=== PATIENT | male | born 1995 | race Caucasian/White ===

== ENCOUNTER 2019-08-24 15:54 | Emergency (ER) | payer OTHER ==
[2019-08-24] MEDS ORDERED: KETOROLAC TROMETHAMINE 60 MG/2 ML SDV IM ONE (16:08)
--- NOTE | 2019-08-24 16:46 | RADIOLOGY REPORT (SQ) ---
EXAM DESCRIPTION: RIBS LEFT W/PA CHEST IMAGES COMPLETED DATE/TIME: 08/24/2019 4:24 pm REASON FOR STUDY: pain COMPARISON: None. TECHNIQUE: Frontal view of the chest and additional views of the left ribs acquired. NUMBER OF VIEWS: Three view. LIMITATIONS: None. FINDINGS: FRONTAL CXR: Small left pleural effusion. No pneumothorax. RIBS: Slightly displaced fractures of the 6th, 7th, 8th and 9th left posterolateral ribs. OTHER: No other significant finding. IMPRESSION: Fractures of the 6th through 9th left posterolateral ribs. Small left effusion. COMMENT: SITE OF TRAUMA/COMPLAINT MARKED/STAMP COMPLETED: NO. TECHNICAL DOCUMENTATION: JOB ID: [id number] 2010 [employer]- All Rights Reserved Reading location - IP/workstation name: [email or web address]
--- NOTE | 2019-08-24 16:56 | ER Document Report ---
ED Medical Screen (RME) - General Chief Complaint: Rib Pain Stated Complaint: FALL/LEFT RIB PAIN Time Seen by Provider: 08/24/19 16:03 Mode of Arrival: Ambulatory Information source: Patient Notes: HPI; 24-year-old male no previous medical problems presents to the emergency room complaining of left lateral and anterior rib pain for the past 4 days. States he was wrestling with somebody much larger than him unknown actual injury. Pain worsening. Worse with movement, hurts to take a deep breath, denies chest pain, denies shortness of breath, taking ibuprofen without relief. Drove self to the emergency room. PE: Alert and oriented x3, moderate distress noted. Lungs: Clear to auscultation without rales, rhonchi, wheezes. Heart: Regular rate rhythm without murmurs, rubs, gallops. Tenderness on palpation to the left lateral and anterior ribs 6 through 10. I have greeted and performed a rapid initial assessment of this patient. A comprehensive ED assessment and evaluation of the patient, analysis of test results and completion of the medical decision making process will be conducted by additional ED providers. I have specifically instructed the patient or family members with the patient to immediately return to any nursing staff should anything change in the patient's condition or with their chief complaint. TRAVEL OUTSIDE OF THE [place] IN LAST 30 DAYS: No - Related Data Allergies/Adverse Reactions: No Known Allergies Allergy (Verified 08/24/19 16:06) Past Medical History - Social History Chew tobacco use (# tins/day): Yes Frequency of alcohol use: Occasional Drug Abuse: None Physical Exam - Vital signs Vitals: Temp Pulse Resp BP Pulse Ox 98.8 F 84 16 140/82 H 96 08/24/19 15:58 08/24/19 15:58 08/24/19 15:58 08/24/19 15:58 08/24/19 15:58 Course - Vital Signs Vital signs: Temp Pulse Resp BP Pulse Ox 98.8 F 84 16 140/82 H 96 08/24/19 16:00 08/24/19 15:58 08/24/19 15:58 08/24/19 15:58 08/24/19 15:58
[2019-08-24 17:49] LABS: ABSOLUTE LYMPHOCYTES (AUTO) 1.3 10^3/uL (0.5-4.7); ABSOLUTE MONOCYTES (AUTO) 0.9 10^3/uL (0.1-1.4); ABSOLUTE NEUT (AUTO) 10.7 10^3/uL (1.7-8.2); BASOPHILS % (AUTO) 0.2 % (0-2); EOSINOPHILS % (AUTO) 0.2 % (0-6); HEMATOCRIT 45.9 % (37.9-51.0); HEMOGLOBIN 15.8 g/dL (13.5-17.0); MEAN CORPUSCULAR HGB CONC 34.5 g/dL (32.0-36.0); MEAN CORPUSCULAR VOLUME 87 fl (80-97); MONOCYTES % (AUTO) 7.1 % (3-13); PLATELET COUNT 308 10^3/uL (150-450); RED BLOOD COUNT 5.28 10^6/uL (4.35-5.55); RED CELL DISTRIBUTION WIDTH 13.9 % (11.5-14.0); SEGMENTED NEUTROPHILS % (AUTO) 82.5 % (42-78); TOTAL CELLS COUNTED % (AUTO) 100 %; WHITE BLOOD COUNT 12.9 10^3/uL (4.0-10.5)
[2019-08-24 18:12] LABS: ALBUMIN 4.8 g/dL (3.5-5.0); ALKALINE PHOSPHATASE 97 U/L (38-126); ANION GAP 10 (5-19); ASPARTATE AMINO TRANSFERASE 36 U/L (17-59); BILIRUBIN,DIRECT 0.1 mg/dL (0.0-0.4); BILIRUBIN,TOTAL 0.9 mg/dL (0.2-1.3); BLOOD UREA NITROGEN 14 mg/dL (7-20); CALCIUM 10.7 mg/dL (8.4-10.2); CARBON DIOXIDE 27 mmol/L (22-30); CHLORIDE 101 mmol/L (98-107); GLUCOSE 101 mg/dL (75-110); POTASSIUM 4.3 mmol/L (3.6-5.0); TOTAL PROTEIN 8.2 g/dL (6.3-8.2)
--- NOTE | 2019-08-24 19:30 | RADIOLOGY REPORT (SQ) ---
EXAM DESCRIPTION: CT CHEST WITH IMAGES COMPLETED DATE/TIME: 08/24/2019 7:13 pm REASON FOR STUDY: 4 rib fx, effusion COMPARISON: None. TECHNIQUE: CT scan of the chest performed using helical scanning technique with dynamic intravenous contrast injection. Images reviewed with lung, soft tissue and bone windows. Reconstructed coronal and sagittal MPR and MIP images reviewed. All images stored on PACS. All CT scanners at this facility use dose modulation, iterative reconstruction, and/or weight based d osing when appropriate to reduce radiation dose to as low as reasonably achievable (ALARA). [facility]: Dose Right [facility]: CareDose [facility]: Dose Right [facility]: Teradose 4D [facility]: Xyleme CONTRAST TYPE AND DOSE: contrast/concentration: Isovue 350.00 mg/ml; Total Contrast Delivered: 80.0 ml; Total Saline Delivered: 55.0 ml RENAL FUNCTION: None required. The patient is less than 50 years old. RADIATION DOSE: CT Rad equipment meets quality standard of care and radiation dose reduction techniq ues were employed. CTDIvol: 10.3 mGy. DLP: 369 mGy-cm. . LIMITATIONS: None. FINDINGS: LUNGS AND PLEURA: There is mild airspace opacification in the left base. No pneumothorax. Small pleural fluid collection. HILAR AND MEDIASTINAL STRUCTURES: No identified masses or abnormal nodes. HEART AND VASCULAR STRUCTURES: No aneurysm or dissection. No central pulmonary emboli. No pericardi al effusion. HARDWARE: None in the chest. UPPER ABDOMEN: No visceral injury. THYROID AND OTHER SOFT TISSUES: No masses. No adenopathy. BONES: Rib fractures on the left. OTHER: No other significant finding. IMPRESSION: Left-sided rib fractures. Cannot exclude limited pulmonary contusion. Small pleural fl uid collection does not appear to represent fresh blood. No pneumothorax. TECHNICAL DOCUMENTATION: JOB ID: [id number] Quality ID # [id number]: Final reports with documentation of one or more dose reduction techniques (e.g., Au tomated exposure control, adjustment of the mA and/or kV according to patient size, use of iterative reconstruction technique) 2010 [employer]- All Rights Reserved Reading location - IP/workstation name: [email or web address]
[2019-08-24] MEDS ORDERED: HYDROMORPHONE HCL INJ/PF 2 MG/ML AMPULE IV ONE (20:05)
[2019-08-24] MEDS ORDERED: ONDANSETRON HCL INJ/PF 4 MG/2 ML SDV IV ONE (20:05)
[2019-08-24] MEDS ORDERED: HYDROCODONE/ACETAMINOPHEN 5-325 MG (6 TAB/ER DISP) PO PRN (21:55)
[2019-08-24] MEDS ORDERED: DOXYCYCLINE HYCLATE 100 MG TABLET PO ONE (21:56)
--- NOTE | 2019-08-24 22:00 | ER Document Report ---
ED General - General Chief Complaint: Rib Pain Stated Complaint: FALL/LEFT RIB PAIN Time Seen by Provider: 08/24/19 16:03 [facility] Care Provider: [facility] [[facility]] - Follow up as needed Mode of Arrival: Ambulatory Information source: Patient Notes: 24-year-old male arrives shortly after wrestling with a very heavy and muscular friend. He weighs at least 260 pounds more than the patient. Patient landed on the floor with his left elbow into his left ribs and fractured 4 of his lower ribs. Patient is in considerable pain upon arrival. He was seen by ASHELY Cabrera upon arrival. Patient denies any medical problems except for tinea versicolor of his chest and back which he has had for 1 year. Patient denies any hemoptysis. CT scan was also done after x-ray of ribs which revealed a question of pulmonary contusion. Patient is very conversant and appears to be in no distress after IV pain medication. TRAVEL OUTSIDE OF THE [place] IN LAST 30 DAYS: No - HPI Onset: Just prior to arrival Onset/Duration: Sudden Quality of pain: Achy Severity: Severe Pain Level: 4 Associated symptoms: None Exacerbated by: Denies Relieved by: Denies Similar symptoms previously: No Recently seen / treated by doctor: No - Related Data Allergies/Adverse Reactions: No Known Allergies Allergy (Verified 08/24/19 16:06) Past Medical History - General Information source: Patient - Social History Smoking Status: Never Smoker Cigarette use (# per day): No Chew tobacco use (# tins/day): Yes Smoking Education Provided: No Frequency of alcohol use: Occasional Drug Abuse: None Lives with: Family Family History: Reviewed & Not Pertinent Patient has homicidal ideation: No Review of Systems - Review of Systems Constitutional: No symptoms reported EENT: No symptoms reported Cardiovascular: See HPI, Chest pain Respiratory: No symptoms reported Gastrointestinal: No symptoms reported Genitourinary: No symptoms reported Male Genitourinary: No symptoms reported Musculoskeletal: No symptoms reported Skin: No symptoms reported Hematologic/Lymphatic: No symptoms reported Neurological/Psychological: No symptoms reported Physical Exam - Vital signs Vitals: Temp Pulse Resp BP Pulse Ox 98.8 F 84 16 140/82 H 96 08/24/19 15:58 08/24/19 15:58 08/24/19 15:58 08/24/19 15:58 08/24/19 15:58 - General General appearance: Alert - HEENT Head: Normocephalic, Atraumatic Eyes: Normal Pupils: PERRL Sinus: Normal Nasal: Normal Mouth/Lips: Normal Pharynx: Normal Neck: Normal - Respiratory Respiratory status: No respiratory distress Chest status: Tender Breath sounds: Decreased air movement Chest palpation: Tender - left lateral ribs - Cardiovascular Rhythm: Regular Heart sounds: Normal auscultation Murmur: No - Abdominal Inspection: Normal Distension: No distension Bowel sounds: Normal Tenderness: Nontender Organomegaly: No organomegaly - Rectal Hemorrhoids: Other - deferred - Genitourinary Tenderness: Other - deferred - Back Back: Normal - Extremities General upper extremity: Normal inspection General lower extremity: Normal inspection - Neurological Neuro grossly intact: Yes Cognition: Normal Orientation: AAOx4 [place] Coma Scale Eye Opening: Spontaneous [place] Coma Scale Verbal: Oriented Gurwinder Coma Scale Motor: Obeys Commands [place] Coma Scale Total: 15 Speech: Normal Motor strength normal: LUE, RUE, LLE, RLE Sensory: Normal - Psychological Associated symptoms: Normal affect - Skin Skin Temperature: Warm Skin Moisture: Dry Skin Color: Other - Tinea versicolor of multiple areas of chest and back reddish-brown in color. Negative for any pityriasis rosea Course - Vital Signs Vital signs: Temp Pulse Resp BP Pulse Ox 98.2 F 76 16 126/79 H 96 08/24/19 20:13 08/24/19 20:13 08/24/19 20:13 08/24/19 20:13 08/24/19 20:13 - Laboratory Result Diagrams: 08/24/19 17:37 08/24/19 17:37 Laboratory results interpreted by me: 08/24/19 08/24/19 17:37 17:37 WBC 12.9 H Lymph % (Auto) 10.0 L Absolute Neuts (auto) 10.7 H Seg Neutrophils % 82.5 H Calcium 10.7 H - Diagnostic Test Radiology reviewed: Reports reviewed Critical Care Note - Critical Care Note Total time excluding time spent on procedures (mins): 90 Comments: I advised patient of the x-ray and CT findings and the fact he will receive [place] by prescription and doxycycline antibiotic. I also advised him to use Selsun Blue and Lotrimin cream on his tinea versicolor of his chest and back Discharge - Discharge Clinical Impression: Ribs, multiple fractures Qualifiers: Encounter type: initial encounter Fracture type: closed Laterality: left Qualified Code(s): S22.42XA - Multiple fractures of ribs, left side, initial encounter for closed fracture Condition: Good Disposition: HOME, SELF-CARE Additional Instructions: Follow-up with personal doctor return to ER as needed take medicines as directed; avoid using left sided rib for at least 2 months. May apply Lidoderm patch to left ribs as necessary. Try not to drive while taking pain medicine. Also try to stay out of sunlight while taking doxycycline. Also use Selsun Blue shampoo on your tenia versicolor skin lesions followed after drying with Lotr imin cream.. The lesions will appear quite irritated for at least 2 weeks while using this medicine. This is a normal reaction. Prescriptions: Doxycycline Monohydrate 100 mg PO DAILY #10 capsule Lidocaine [Lidoderm 5% (700 mg) Transdermal Patch] 1 patch TP DAILY #30 adh..p atch Oxycodone HCl/Acetaminophen [Percocet 5-325 mg Tablet] 1 tab PO BID #15 tablet Forms: Return to Work Referrals: [facility] [Primary [facility]] - Follow up as needed
[2019-08-24 22:50] VITALS: BP 138/75
== END 2019-08-24 22:35 | disposition home or self-care (01) ==
LOC: ER 15:54
DX: S22.42XA Multiple fractures of ribs, left side, initial encounter for closed fracture (principal); R07.81 Pleurodynia; X58.XXXA Exposure to other specified factors, initial encounter; Y93.83 Activity, rough housing and horseplay
CPT/HCPCS: 99285; 96372; 96374; 96375; 36415; 85025; 80053; 71101; 71260; J1885; J1170; J2405

== ENCOUNTER 2020-02-21 01:43 | Emergency (ER) | payer OTHER ==
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
[2020-02-21 04:56] LABS: ABSOLUTE EOSINOPHILS # (AUTO) 0.1 10^3/uL (0.0-0.6); ABSOLUTE LYMPHOCYTES (AUTO) 1.6 10^3/uL (0.5-4.7); ABSOLUTE NEUT (AUTO) 8.6 10^3/uL (1.7-8.2); BASOPHILS % (AUTO) 0.3 % (0-2); HEMATOCRIT 35.8 % (37.9-51.0); HEMOGLOBIN 12.2 g/dL (13.5-17.0); LYMPHOCYTES % (AUTO) 14.1 % (13-45); MEAN CORPUSCULAR HEMOGLOBIN 30.1 pg (27.0-33.4); MEAN CORPUSCULAR VOLUME 88 fl (80-97); MONOCYTES % (AUTO) 8.5 % (3-13); PLATELET COUNT 466 10^3/uL (150-450); RED BLOOD COUNT 4.05 10^6/uL (4.35-5.55); SEGMENTED NEUTROPHILS % (AUTO) 76.1 % (42-78); TOTAL CELLS COUNTED % (AUTO) 100 %; WHITE BLOOD COUNT 11.3 10^3/uL (4.0-10.5)
[2020-02-21 05:23] LABS: ALBUMIN 4.3 g/dL (3.5-5.0); ALKALINE PHOSPHATASE 119 U/L (38-126); ANION GAP 9 (5-19); ASPARTATE AMINO TRANSFERASE 34 U/L (17-59); BILIRUBIN,DIRECT 0.3 mg/dL (0.0-0.4); BILIRUBIN,TOTAL 0.9 mg/dL (0.2-1.3); BLOOD UREA NITROGEN 19 mg/dL (7-20); C-REACTIVE PROTEIN 81.8 mg/L (<10.0); CALCIUM 9.9 mg/dL (8.4-10.2); CARBON DIOXIDE 26 mmol/L (22-30); CHLORIDE 103 mmol/L (98-107); GLUCOSE 105 mg/dL (75-110); POTASSIUM 4.8 mmol/L (3.6-5.0); TOTAL PROTEIN 7.9 g/dL (6.3-8.2)
--- NOTE | 2020-02-21 05:33 | RADIOLOGY REPORT (SQ) ---
EXAM: FEMUR RIGHT CLINICAL DATA: 25 years Male post op pain, fever TECHNICAL DATA: 2 x-ray views of the left femur were performed on 02/21/2020 at 4:41 AM. COMPARISONS: None FINDINGS: There is no evidence of fracture or dislocation. There is no significant arthritis or degenerative change. No focal lytic or sclerotic bone lesions are seen. There is partial visualization of an external fixator extending through the distal femoral diaphysis. Bone mineralization is normal. There is a small amount of air in the soft tissues posterior to the patella. IMPRESSION: 1. No evidence of acute osseous injury involving the right femur. There is partial visualization of an external fixator. 2. Small amount of air in the soft tissues posterior to the patella..
--- NOTE | 2020-02-21 05:36 | RADIOLOGY REPORT (SQ) ---
EXAM DESCRIPTION: X-ray single view chest. CLINICAL HISTORY: 25 years Male, post op fever COMPARISON: 08/24/2019 TECHNIQUE: Single portable x-ray view of the chest performed on 02/21/2020 at 4:39 AM FINDINGS: The lungs are well expanded and are clear. There is no evidence of a pneumothorax. The cardiac silhouette is normal in size and configuration. The mediastinal contours are normal. No acute osseous abnormality is identified. There are old left-sided rib fractures. No focal soft tissue abnormalities are seen. Lines and tubes: None. IMPRESSION: No evidence of acute intrathoracic disease. There are old left-sided rib fractures.
--- NOTE | 2020-02-21 05:38 | RADIOLOGY REPORT (SQ) ---
EXAM: TIBIA FIBULA RIGHT CLINICAL DATA: 25 years Male post op pain, fever TECHNICAL DATA: 2 x-ray views of the right tibia fibula were performed on 02/21/2020 at 4:38 AM. COMPARISONS: None FINDINGS: There is a questionable small fracture fragment adjacent to the lateral femoral condyle. Otherwise, no definite acute fracture is identified. The knee joint and ankle joint are intact. There is no significant arthritis or degenerative change. No focal lytic or sclerotic bone lesions are seen. There is partial visualization of an external fixator. Bone mineralization is normal. No focal soft tissue abnormalities are identified. IMPRESSION: 1. Questionable small fracture fragment adjacent to the lateral femoral condyle. 2. Otherwise, no evidence of acute osseous abnormality. 3. Partial visualization of an external fixator.
[2020-02-21 05:44] LABS: ERYTHROCYTE SEDIMENTATION RATE 74 mm/hr (0-15)
[2020-02-21 07:46] VITALS: BP 112/73
== END 2020-02-21 07:20 | disposition home or self-care (01) ==
LOC: ER 01:43
DX: S82.91XE Unspecified fracture of right lower leg, subsequent encounter for open fracture type I or II with routine healing (principal); R50.9 Fever, unspecified; M79.604 Pain in right leg; Z98.890 Other specified postprocedural states; V89.2XXD Person injured in unspecified motor-vehicle accident, traffic, subsequent encounter; Z79.899 Other long term (current) drug therapy; J45.909 Unspecified asthma, uncomplicated
CPT/HCPCS: 36415; 71045; 80053; 85025; 85652; 86140; 87040; 99284